=== PATIENT | female | born 1995 | race Caucasian/White ===

== ENCOUNTER 2018-02-16 20:02 | Inpatient (IN) | payer SELFPAY ==
[~2018-02-16] VITALS: Ht 160 cm; Wt 75.7 kg
[2018-02-16 20:17] VITALS: BP 128/80
[2018-02-16 20:24] LABS: BILIRUBIN,URINE NEGATIVE (NEGATIVE); CLARITY,URINE CLEAR; COLOR,URINE YELLOW; GLUCOSE, URINE (UA) 4+ (NEGATIVE); KETONES,URINE NEGATIVE (NEGATIVE); LEUKOCYTE ESTERASE ,URINE 3+ (NEGATIVE); NITRITE,URINE NEGATIVE (NEGATIVE); PH,URINE 5 (5-9); PROTEIN,URINE 1+ (NEGATIVE); UROBILINOGEN,URINE 1 MG/DL (NORMAL)
[2018-02-16 20:33] LABS: BACTERIA,URINE MODERATE /HPF; WBC,URINE 25-50 /HPF
[2018-02-16] MEDS ORDERED: D5 LR IV SOLUTION 1,000 ML IV ONE (23:38)
[2018-02-17] VITALS (70 sets, daily range): BP systolic 89–142; BP diastolic 49–89
[2018-02-17] MEDS ORDERED: LACTATED RINGERS 1,000 ML IV ONE ×2 (00:05→01:50)
[2018-02-17] MEDS ORDERED: SUFENTA 0.6MCG/ML BUPIVA 0.125 100 ML ONE (00:11)
[2018-02-17] MEDS ORDERED: CATHETER FLUSH 10 ML SYR IV PRN (00:15)
[2018-02-17] MEDS ORDERED: EPIDURAL (SUFENTA 0.6MCG/ML BUPIVA 0.125%) 100 ML BAG EPI SCH (00:15)
[2018-02-17] MEDS ORDERED: NALOXONE 0.4 MG/ML 1 ML (NARCAN) VIAL IV PRN ×3 (00:15→02:00)
[2018-02-17 00:22] LABS: BASOPHILS # (AUTO) 0.1 10^3/uL (0.0-0.1); BASOPHILS % (AUTO) 0 % (0-10); EOSINOPHILS # (AUTO) 0.2 10^3/uL (0.0-0.3); EOSINOPHILS % (AUTO) 1 % (0-10); HEMATOCRIT 33 % (35-52); HEMOGLOBIN 11.5 G/DL (11.5-16.0); LYMPHOCYTES # (AUTO) 2.6 X 10^3 (1.0-4.0); LYMPHOCYTES % (AUTO) 16 % (12-44); MEAN CORPUSCULAR HEMOGLOBIN 31 PG (25-34); MEAN CORPUSCULAR HGB CONC 34 G/DL (32-36); MEAN CORPUSCULAR VOLUME 90 FL (80-99); MONOCYTES # (AUTO) 1.3 X 10^3 (0.0-1.0); MONOCYTES % (AUTO) 8 % (0-12); NEUTROPHILS % (AUTO) 74 % (42-75); PLATELET COUNT 252 10^3/uL (130-400); RED CELL DISTRIBUTION WIDTH 12.5 % (10.0-14.5); WHITE BLOOD COUNT 16.2 10^3/uL (4.3-11.0)
[2018-02-17] MEDS ORDERED: fentaNYL INJECTION 100 MCG/2 ML AMP ONE (01:45)
[2018-02-17] MEDS ORDERED: METOCLOPRAMIDE INJ 10 MG/2 ML (REGLAN) IV PRN (02:00)
[2018-02-17] MEDS ORDERED: EPIDURAL (SUFENTA 0.6MCG/ML BUPIVA 0.125%) 100 ML BAG EPI PRN (02:00)
[2018-02-17] MEDS ORDERED: diphenhydrAMINE 50 MG/ML INJ (BENADRYL) IV PRN (02:00)
[2018-02-17] MEDS ORDERED: CATHETER FLUSH 10 ML SYR IV SCH (06:00)
--- NOTE | 2018-02-17 07:12 | History & Physical-OB ---
OB - Chief Complaint & HPI Date/Time Date of Admission: Date of Admission: Feb 16, 2018 at 23:35 Time Seen by Provider: 06:45 Chief Complaint/History OB-Reason for Admission/Chief: Onset of Labor Hx : 2 Hx Para: 1 Expected Date of Delivery: Mar 03, 2018 Gestational Age in Weeks: 38 Gestational Age in Days: 0 Admission Nurse Assessment Rev: Yes History of Labs Panorama WNL, 1 hour GTT 80, HIV negative, Hep B Neg, Rubella Immune, A positive /Antibody negative, PAP WNL. CF Carrier POSITIVE, FOB CF Carrier Status NEG. Allergies and Home Medications Allergies Coded Allergies: bupropion (Verified Allergy, Unknown, 02/17/18) Patient Home Medication List Home Medication List Reviewed: Yes OB - History Hx of Present Care: Yes Ultrasounds: Normal mid trimester US, Other (normal level II US at 34 wks) Obstetrical Complications: None Medical Complications: None Other Concerns: FOB with tetralogy of fallot and pt has father with a congenital heart defect resulting in a single ventricle (per her report, no one appears to know his exact defect) Information Induced Hypertension: No Maternal Gestational Diabetes: No Hemorrhage: No Obstetrical History Hx : 2 Hx Para: 1 Hx # Term Pregnancies: 1 Hx # Pregnancies: 0 Number of Living Children: 1 Hx Termination: No Hx Total # of Abortions (Spona: 0 Hx Multiple Gestation: No Hx Ectopic : No Hx Stillbirth: No Hx Complication: No Hx Induced Hypertens: Yes (per records) Hx Maternal Gestational Diabet: No Hx Hemorrhage: No Delivery History Hx Dystocia: No Hx Forceps Assisted Delivery: No Hx Vacuum Extraction Assisted: No Hx Placenta Abnormality: No Hx Distress: No Hx Large For Gestational Age I: No Hx Small for Gestational Age I: No Hx Section: No Hx Vaginal Delivery Post C-Sec: No Hx Blood Disorders: No Adverse Rxn to Tranfusion: No Patient Past Medical History Depression Anxiety Hyperthyroidism -- not on medication History of Seizures "due to stress and thyroid issues with last stated seizure Apr 2017" --> never on seizure medication or seen by neurology CF Carrier Social History/Family History HIV/AIDS: No Recent Infectious Disease Expo: No Sexually Transmitted Disease: Yes (history of gonorrhea, chlamydia) Alcohol Use: Denies Use Recreational Drug Use: No Smoking Cessation: Current every day smoker Significant Family Hx Congenital heart defect in father - reported single ventricle, but specifics or further details unknown Immunizations Tetanus Booster (TDap): Less than 5yrs Rubella: immune RPR/VDRL: Negative GBS Status: Negative HBsAG: Negative OB - Admission Exam Physical Exam Vitals: Vital Signs 02/17/18 02/17/18 04:30 06:30 Temp 98.6 Pulse 85 Resp 18 B/P (MAP) 90/53 (65) Pulse Ox 96 O2 Delivery Room Air HEENT: NCAT Heart: Rhythm Normal Lungs: Clear Abdomen: Gravid Extremities: Normal Reflexes: Normal Cervical Dilatation: 6cm Effacement: 50% Station: -2 Membranes: Ruptured Amniotic Fluid: Clear Heart Rate: 140's Accelerations: Accelerations Present Fdc Variability: Average (6-25) Contractions on Admission: < 5 Minutes Apart Date/Time Contractions Began;: 02/16/181999 Intensity: Moderate Beaulieu Scoring Tool (Modified) Dilation (cm): >5cm (3) Effacement (%): 31-51% (1) Descent/Station: -3 (0) Cervix Consistency: Soft (2) Cervix Position: Anterior (2) Add 1 point for: Each previous vaginal delivery (1) Beaulieu Score: 9 Labs Laboratory Tests Test 02/16/18 20:15 02/17/18 00:07 Range/Units Urine Color YELLOW Urine Clarity CLEAR Urine pH 5 5-9 Urine Specific [place] 1.025 H 1.016-1.022 Urine Protein 1+ H NEGATIVE Urine Glucose (UA) 4+ H NEGATIVE Urine Ketones NEGATIVE NEGATIVE Urine Nitrite NEGATIVE NEGATIVE Urine Bilirubin NEGATIVE NEGATIVE Urine Urobilinogen 1 NORMAL MG/DL Urine Leukocyte Esterase 3+ H NEGATIVE Urine RBC (Auto) NEGATIVE NEGATIVE Urine RBC NONE /HPF Urine WBC 25-50 H /HPF Urine Squamous Epithelial Cells 5-10 /HPF Urine Crystals NONE /LPF Urine Bacteria MODERATE H /HPF Urine Casts NONE /LPF Urine Mucus NEGATIVE /LPF Urine Culture Indicated YES White Blood Count 16.2 H 4.3-11.0 10^3/uL Red Blood Count 3.70 L 4.35-5.85 10^6/uL Hemoglobin 11.5 11.5-16.0 G/DL Hematocrit 33 L 35-52 % Mean Corpuscular Volume 90 80-99 FL Mean Corpuscular Hemoglobin 31 25-34 PG Mean Corpuscular Hemoglobin Concent 34 32-36 G/DL Red Cell Distribution Width 12.5 10.0-14.5 % Platelet Count 252 130-400 10^3/uL Mean Platelet Volume 11.0 H 7.4-10.4 FL Neutrophils (%) (Auto) 74 42-75 % Lymphocytes (%) (Auto) 16 12-44 % Monocytes (%) (Auto) 8 0-12 % Eosinophils (%) (Auto) 1 0-10 % Basophils (%) (Auto) 0 0-10 % Neutrophils # (Auto) 12.0 H 1.8-7.8 X 10^3 Lymphocytes # (Auto) 2.6 1.0-4.0 X 10^3 Monocytes # (Auto) 1.3 H 0.0-1.0 X 10^3 Eosinophils # (Auto) 0.2 0.0-0.3 10^3/uL Basophils # (Auto) 0.1 0.0-0.1 10^3/uL OB - Assessment/Plan/Diagnosis Assessment Assessment: active labor Admission Dx Labor Term Gestation Admission Status: Inpatient Order (span 2 midnights) Reason for Inpatient Admission: delivery Plan Plan: Other Other Plan AROM at 0647 If no significant change after several hours, will augment with pitocin. Anticipate vaginal delivery. Copy Copies To 1: LACEY CARIAS MARGARET E DO Feb 17, 2018 07:12
[2018-02-17] MEDS: ONDANSETRON 4 MG/2 ML (SDV) Z0FRAN IV PRN ×2 (07:38→12:20)
[2018-02-17] MEDS: D5 LR IV SOLUTION 1,000 ML IV SCH ×2 (07:41)
[2018-02-17] MEDS ORDERED: OXYTOCIN/NORMAL SALINE 500 ML IV SCH (10:00)
[2018-02-17] MEDS: OXYTOCIN/NORMAL SALINE 500 ML IV SCH ×2 (13:40→14:11)
--- NOTE | 2018-02-17 14:25 | OB Labor & Delivery Record ---
Vag Delivery Note Vag Delivery Note Date of Delivery: 02/17/18 Preoperative Diagnosis: Nani Sibley is a 22 /Para 2 / 1,Gestational Age 38 0/7 with spontaneous onset of labor. Postoperative Diagnosis: Same Surgeon: LACEY CARIAS Anesthesia: Epidural Delivery Type: Spontaneous Vaginal Delivery Findings: Viable female infant, apgars 8 and 9, weight 7 lb 2 oz Lacerations: none Intact placenta with 3 vessel cord. Nuchal cord x1, no body cord or shoulder dystocia Pitocin bolus for hemorrhage prophylaxis Estimated Blood Loss: 100 ml Complications: None Condition: Stable Description of Procedure: The patient is a 22 yr old at 38 0/7 wks gestation who presented last night with spontaneous onset of labor at term. She was admitted and informed consent was obtained. Her labor course was remarkable for severe variables immediately prior to delivery. She progressed to complete dilatation and began to push. She was then set up for delivery. The infant's head was delivered atraumatically in the SIM position. The shoulders and remainder of the infant's body were then delivered without difficulty. Upon delivery, nuchal cord was felt - too tight to reduce, but infant was able to deliver through without difficulty. The infant was placed on maternal abdomen, cord was allowed to pulsate and after approximately 90 seconds was doubly clamped and cut and the infant was handed off to the pediatric staff. An intact placenta with 3-vessel cord delivered via Gregoria and there was found to be minimal bleeding.~ Vigorous fundal massage was performed and the fundus was found to be firm. IV oxytocin was given. Examination of the vagina and perineum revealed an intact perineum. Following delivery, instrument and needle counts were correct. Mom and baby were both in stable condition in the labor suite. Vitals - Labs Vital Signs - I&O Vital Signs Date Time Temp Pulse Resp B/P (MAP) Pulse Ox O2 Delivery O2 Flow Rate FiO2 02/17/18 13:15 67 18 102/57 (72) 95 Room Air 02/17/18 13:00 99.0 69 18 102/57 (72) 95 Room Air 02/17/18 12:45 76 18 102/65 (77) 97 Room Air 02/17/18 12:30 98 18 115/73 (87) 97 Room Air 02/17/18 12:15 98.8 93 18 102/56 (71) 97 Room Air 02/17/18 12:00 92 18 96 Room Air 02/17/18 11:45 85 18 90/51 (64) 96 Room Air 02/17/18 11:30 79 18 93/51 (65) 96 Room Air 02/17/18 11:15 78 18 96 Room Air 02/17/18 11:00 96 18 102/54 (70) 97 Room Air 02/17/18 10:45 64 18 98/49 (65) 97 Room Air 02/17/18 10:30 98.8 86 18 98 Room Air 02/17/18 10:15 94 18 112/73 (86) 99 Room Air 02/17/18 10:00 103 18 108/69 (82) 99 Room Air 02/17/18 09:45 66 18 109/63 (78) 99 Room Air 02/17/18 09:30 79 18 94/51 (65) 99 Room Air 02/17/18 09:15 75 18 101/57 (72) 98 Room Air 02/17/18 09:00 80 18 98/55 (69) 98 Room Air 02/17/18 08:45 90 18 104/68 (80) 98 Room Air 02/17/18 08:30 63 18 99/54 (69) 98 Room Air 02/17/18 08:15 86 18 96/53 (67) 98 Room Air 02/17/18 08:00 98.9 100 18 102/60 (74) 98 Room Air 02/17/18 07:45 104 18 97/60 (72) 99 Room Air 02/17/18 07:30 75 18 96/54 (68) 99 Room Air 02/17/18 07:15 97 18 96 Room Air 02/17/18 07:00 98.8 100 18 105/68 (80) 96 Room Air 02/17/18 06:45 81 18 95/53 (67) 96 Room Air 02/17/18 06:30 85 18 90/53 (65) 96 Room Air 02/17/18 06:15 91 18 89/54 (66) 96 Room Air 02/17/18 06:00 97 18 101/51 (68) 96 Room Air 02/17/18 05:45 87 18 90/54 (66) 96 Room Air 02/17/18 05:30 76 18 90/55 (67) 94 Room Air 02/17/18 05:15 78 18 92/50 (64) 95 Room Air 02/17/18 05:00 73 18 92/54 (67) 97 Room Air 02/17/18 04:45 96 18 97 Room Air 02/17/18 04:30 98.6 67 18 97/53 (68) 96 Room Air 02/17/18 04:15 68 18 97/56 (70) 96 Room Air 02/17/18 04:00 65 18 94/55 (68) 96 Room Air 02/17/18 03:45 65 18 94/55 (68) 96 Room Air 02/17/18 03:30 63 18 104/54 (71) 96 Room Air 02/17/18 03:15 61 18 102/55 (71) 96 Room Air 02/17/18 03:00 99.0 60 100/55 (70) 96 Room Air 02/17/18 02:45 88 133/69 (90) 98 Room Air 02/17/18 02:30 75 110/58 (75) 98 Room Air 02/17/18 02:20 67 111/58 (75) 91 Room Air 02/17/18 02:15 74 117/59 (78) 98 Room Air 02/17/18 02:12 94 02/17/18 02:09 93 124/76 (92) 02/17/18 02:06 74 105/55 (72) 02/17/18 02:03 71 105/57 (73) 02/17/18 02:00 62 95/51 (66) 02/17/18 01:56 107 122/62 (82) 02/17/18 01:53 105 125/60 (81) 99 Room Air 02/17/18 01:49 99 128/60 (82) 100 Room Air 02/17/18 01:46 133 130/65 (86) 97 Room Air 02/17/18 01:43 102 126/78 (94) 98 Room Air 02/17/18 01:40 125 126/89 (101) 02/17/18 01:36 108 120/80 (93) 98 Room Air 02/17/18 01:33 103 142/87 (105) 97 Room Air 02/17/18 01:30 100 129/81 (97) 02/17/18 01:28 88 125/82 (96) 100 Room Air 02/17/18 01:24 96 129/83 (98) 02/17/18 01:22 92 119/80 (93) 100 Room Air 02/17/18 01:18 82 119/82 (94) 99 Room Air 02/17/18 01:13 94 99 Room Air 02/17/18 01:08 79 99 Room Air 02/17/18 01:03 91 99 Room Air 02/17/18 00:15 87 108/64 (79) 02/16/18 20:17 99 18 128/80 (96) Labs Laboratory Tests 02/16/18 20:15: Urine Color YELLOW, Urine Clarity CLEAR, Urine pH 5, Urine Specific [place] 1.025H, Urine Protein 1+H, Urine Glucose (UA) 4+H, Urine Ketones NEGATIVE, Urine Nitrite NEGATIVE, Urine Bilirubin NEGATIVE, Urine Urobilinogen 1, Urine Leukocyte Esterase 3+H, Urine RBC (Auto) NEGATIVE, Urine RBC NONE, Urine WBC 25- 50H, Urine Squamous Epithelial Cells 5-10, Urine Crystals NONE, Urine Bacteria MODERATEH, Urine Casts NONE, Urine Mucus NEGATIVE, Urine Culture Indicated YES 02/17/18 00:07: White Blood Count 16.2H, Red Blood Count 3.70L, Hemoglobin 11.5, Hematocrit 33L , Mean Corpuscular Volume 90, Mean Corpuscular Hemoglobin 31, Mean Corpuscular Hemoglobin Concent 34, Red Cell Distribution Width 12.5, Platelet Count 252, Mean Platelet Volume 11.0H, Neutrophils (%) (Auto) 74, Lymphocytes (%) (Auto) 16 , Monocytes (%) (Auto) 8, Eosinophils (%) (Auto) 1, Basophils (%) (Auto) 0, Neutrophils # (Auto) 12.0H, Lymphocytes # (Auto) 2.6, Monocytes # (Auto) 1.3H, Eosinophils # (Auto) 0.2, Basophils # (Auto) 0.1 Microbiology 02/16/18 Urine Culture - Preliminary, Resulted Sent To LACEY Boo DO Feb 17, 2018 14:25
--- NOTE | 2018-02-17 14:29 | OB Labor & Delivery Record ---
L&D History Date of Service Date of Service: Feb 17, 2018 History Expected Date of Delivery: Mar 03, 2018 Gestational Age in Weeks: 38 Hx : 2 Hx Para: 1 Complications Events: Routine care Operative Indications (Cesarea: N/A-Vaginal Delivery Intrapartal Events: None L&D Stage1 Stage One Onset of Labor - Date: Feb 16, 2018 Onset of Labor - Time: 20:00 Duration - Stage I: 17 hours 30 minutes Monitors and Tracing Monitor Mode: Internal Heart Rate: 150 Monitor Decelerations: Variable Station: -1 Senior Care Variability: Average (6-10) Presentation: Vertex Vital Signs VS - Last 72 Hours, by Label 02/16/18 02/17/18 02/17/18 02/17/18 20:17 00:15 01:03 01:08 Pulse 99 87 91 79 Resp 18 B/P (MAP) 128/80 (96) 108/64 (79) Pulse Ox 99 99 O2 Delivery Room Air Room Air 02/17/18 02/17/18 02/17/18 02/17/18 01:13 01:18 01:22 01:24 Pulse 94 82 92 96 B/P (MAP) 119/82 (94) 119/80 (93) 129/83 (98) Pulse Ox 99 99 100 O2 Delivery Room Air Room Air Room Air 02/17/18 02/17/18 02/17/18 02/17/18 01:28 01:30 01:33 01:36 Pulse 88 100 103 108 B/P (MAP) 125/82 (96) 129/81 (97) 142/87 (105) 120/80 (93) Pulse Ox 100 97 98 O2 Delivery Room Air Room Air Room Air 02/17/18 02/17/18 02/17/18 02/17/18 01:40 01:43 01:46 01:49 Pulse 125 102 133 99 B/P (MAP) 126/89 (101) 126/78 (94) 130/65 (86) 128/60 (82) Pulse Ox 98 97 100 O2 Delivery Room Air Room Air Room Air 02/17/18 02/17/18 02/17/18 02/17/18 01:53 01:56 02:00 02:03 Pulse 105 107 62 71 B/P (MAP) 125/60 (81) 122/62 (82) 95/51 (66) 105/57 (73) Pulse Ox 99 O2 Delivery Room Air 02/17/18 02/17/18 02/17/18 02/17/18 02:06 02:09 02:12 02:15 Pulse 74 93 94 74 B/P (MAP) 105/55 (72) 124/76 (92) 117/59 (78) Pulse Ox 98 O2 Delivery Room Air 02/17/18 02/17/18 02/17/18 02/17/18 02:20 02:30 02:45 03:00 Temp 99.0 Pulse 67 75 88 60 B/P (MAP) 111/58 (75) 110/58 (75) 133/69 (90) 100/55 (70) Pulse Ox 91 98 98 96 O2 Delivery Room Air Room Air Room Air Room Air 02/17/18 02/17/18 02/17/18 02/17/18 03:15 03:30 03:45 04:00 Pulse 61 63 65 65 Resp 18 18 18 18 B/P (MAP) 102/55 (71) 104/54 (71) 94/55 (68) 94/55 (68) Pulse Ox 96 96 96 96 O2 Delivery Room Air Room Air Room Air Room Air 02/17/18 02/17/18 02/17/18 02/17/18 04:15 04:30 04:45 05:00 Temp 98.6 Pulse 68 67 96 73 Resp 18 18 18 18 B/P (MAP) 97/56 (70) 97/53 (68) 92/54 (67) Pulse Ox 96 96 97 97 O2 Delivery Room Air Room Air Room Air Room Air 02/17/18 02/17/18 02/17/18 02/17/18 05:15 05:30 05:45 06:00 Pulse 78 76 87 97 Resp 18 18 18 18 B/P (MAP) 92/50 (64) 90/55 (67) 90/54 (66) 101/51 (68) Pulse Ox 95 94 96 96 O2 Delivery Room Air Room Air Room Air Room Air 02/17/18 02/17/18 02/17/18 02/17/18 06:15 06:30 06:45 07:00 Temp 98.8 Pulse 91 85 81 100 Resp 18 18 18 18 B/P (MAP) 89/54 (66) 90/53 (65) 95/53 (67) 105/68 (80) Pulse Ox 96 96 96 96 O2 Delivery Room Air Room Air Room Air Room Air 02/17/18 02/17/18 02/17/18 02/17/18 07:15 07:30 07:45 08:00 Temp 98.9 Pulse 97 75 104 100 Resp 18 18 18 18 B/P (MAP) 96/54 (68) 97/60 (72) 102/60 (74) Pulse Ox 96 99 99 98 O2 Delivery Room Air Room Air Room Air Room Air 02/17/18 02/17/18 02/17/18 02/17/18 08:15 08:30 08:45 09:00 Pulse 86 63 90 80 Resp 18 18 18 18 B/P (MAP) 96/53 (67) 99/54 (69) 104/68 (80) 98/55 (69) Pulse Ox 98 98 98 98 O2 Delivery Room Air Room Air Room Air Room Air 02/17/18 02/17/18 02/17/18 02/17/18 09:15 09:30 09:45 10:00 Pulse 75 79 66 103 Resp 18 18 18 18 B/P (MAP) 101/57 (72) 94/51 (65) 109/63 (78) 108/69 (82) Pulse Ox 98 99 99 99 O2 Delivery Room Air Room Air Room Air Room Air 02/17/18 02/17/18 02/17/18 02/17/18 10:15 10:30 10:45 11:00 Temp 98.8 Pulse 94 86 64 96 Resp 18 18 18 18 B/P (MAP) 112/73 (86) 98/49 (65) 102/54 (70) Pulse Ox 99 98 97 97 O2 Delivery Room Air Room Air Room Air Room Air 02/17/18 02/17/18 02/17/18 02/17/18 11:15 11:30 11:45 12:00 Pulse 78 79 85 92 Resp 18 18 18 18 B/P (MAP) 93/51 (65) 90/51 (64) Pulse Ox 96 96 96 96 O2 Delivery Room Air Room Air Room Air Room Air 02/17/18 02/17/18 02/17/18 02/17/18 12:15 12:30 12:45 13:00 Temp 98.8 99.0 Pulse 93 98 76 69 Resp 18 18 18 18 B/P (MAP) 102/56 (71) 115/73 (87) 102/65 (77) 102/57 (72) Pulse Ox 97 97 97 95 O2 Delivery Room Air Room Air Room Air Room Air 02/17/18 13:15 Pulse 67 Resp 18 B/P (MAP) 102/57 (72) Pulse Ox 95 O2 Delivery Room Air Rupture of Membranes Spontaneous Ruture of Membrane: No Amniotic Membrane Rupture Time: 0647 Amniotic Membrane Fluid Desc.: Clear Vaginal Bleeding Description: Normal Show Induction/Anesthesia Epidural Cath Placement - Time: 3 L&D Stage2 Stage Two Stage II Date: Feb 17, 2018 Stage II Time: 13:34 Stage II Duration: 4 minutes Monitors and Tracing Monitor Mode: Internal Heart Rate: 150 Monitor Decelerations: Variable Paper Sorter Variability: Average (6-10) Short Term Variability: Present Position: Right Occiput Anterior Presentation: Vertex Cord Descript/Complications Cord Vessel Description: 3 Vessels Delivery Type Infant Delivery Method: Spontaneous Vaginal Anterior Shoulder: Left Episiotomy/Perineal Laceration Laceraction(s)/Extensions: No Condition of Infant Delivery Delivery Date & Time: 02/17/2018 at 1334 1 minute Comment: 8 5 minute Comment: 9 Condition of Condition of Infant: Living Exam: No Observed Abnormalities Resuscitation Resuscitation: N/A - Spontaneous Resp L&D Stage3 Stage Three Stage III Date: Feb 17, 2018 Stage III Time: 13:40 Stage III Duration: 6 minutes Pictocin Pitocin Administration mu/min: 2 Pitocin ml/hr: 2 Pitocin Administration Comment: 1215 pitocin started Placenta Delivery Placenta Delivery: Spontaneous Delivery Summary Summary Total Labor Time 17 hours 40 minutes Estimated blood loss (mL): 100 Attending at delivery: Dr. Main Condition of Delivery Examined: Cervix Examined, Uterus Explored Post Hemorrhage: No Condition of Mother Stable Condition of (s) LACEY Martinez DO Feb 17, 2018 14:29
[2018-02-17] MEDS ORDERED: cefTRIAXone INJECTION 1,000 MG in NS (IVPB) 50 ML IV NR (14:45)
[2018-02-17] MEDS ORDERED: WITCH HAZEL(TUCKS) 40 EA JAR TOP PRN (14:45)
[2018-02-17] MEDS ORDERED: DIBUCAINE (NUPERCAINAL) 1% OINT 30 GM TOP PRN (14:45)
[2018-02-17] MEDS ORDERED: BENZOCAINE/MENTHOL (DERMOPLAST) 56 ML CAN TP PRN (14:45)
[2018-02-17] MEDS ORDERED: HYDROcodone/APAP 5 MG/325 MG (LORTAB) TAB PO PRN (14:45)
[2018-02-17] MEDS: IBUPROFEN 600 MG (MOTRIN) TAB PO PRN ×2 (15:07→21:14)
[2018-02-17] MEDS: DOCUSATE SODIUM 100 MG (COLACE) CAP PO SCH (21:11)
[2018-02-17] MEDS: CATHETER FLUSH 10 ML SYR IV SCH (21:18)
[2018-02-18] VITALS: BP 109/69
[2018-02-18 03:59] VITALS: BP 102/53
[2018-02-18 06:24] LABS: BASOPHILS % (AUTO) 0 % (0-10); EOSINOPHILS # (AUTO) 0.3 10^3/uL (0.0-0.3); EOSINOPHILS % (AUTO) 2 % (0-10); HEMATOCRIT 29 % (35-52); HEMOGLOBIN 9.9 G/DL (11.5-16.0); LYMPHOCYTES # (AUTO) 3.8 X 10^3 (1.0-4.0); LYMPHOCYTES % (AUTO) 23 % (12-44); MEAN CORPUSCULAR HEMOGLOBIN 31 PG (25-34); MEAN CORPUSCULAR HGB CONC 34 G/DL (32-36); MEAN CORPUSCULAR VOLUME 92 FL (80-99); MEAN PLATELET VOLUME 11.2 FL (7.4-10.4); MONOCYTES # (AUTO) 1.4 X 10^3 (0.0-1.0); MONOCYTES % (AUTO) 9 % (0-12); NEUTROPHILS # (AUTO) 10.8 X 10^3 (1.8-7.8); NEUTROPHILS % (AUTO) 66 % (42-75); PLATELET COUNT 219 10^3/uL (130-400); RED BLOOD COUNT 3.17 10^6/uL (4.35-5.85); RED CELL DISTRIBUTION WIDTH 12.4 % (10.0-14.5); WHITE BLOOD COUNT 16.4 10^3/uL (4.3-11.0)
[2018-02-18] MEDS: CATHETER FLUSH 10 ML SYR IV SCH (06:33)
[2018-02-18] MEDS ORDERED: PRENATAL VITAMIN 1 EA TAB PO SCH (07:00)
--- NOTE | 2018-02-18 07:53 | Discharge Inst-Women's Service ---
Discharge Inst-Women's Serv Consults/Follow Up Additional Follow Up: Yes (with Dr Main in 6 weeks.) Activity Activity: Activity as Tolerated Driving Instructions: No Driving for 1 Week Nothing Inside Vagina: No [place] (for 6 weeks.) Return to The Hospital For: as below Symptoms to Report to : Bleeding Excessive, Pain Increased, Fever Over 101 Degrees F, Vaginal Discharge Foul For Any Problems or Questions: Contact Your Physician MARLEY TENORIO MD Feb 18, 2018 07:53
--- NOTE | 2018-02-18 08:16 | Anesthesia-Regional Post-Op ---
Regional Patient Condition Mental Status: Alert, Oriented x3 Circulation: Same as Pre-Op Headache: Absent Sensation: Full Recovery Motor Block: Absent Post Op Complications Complications None Follow Up Care/Instructions Patient Instructions None needed. Anesthesia/Patient Condition Patient is doing well, no complaints, stable vital signs, no apparent adverse anesthesia problems. No complications reported per nursing. D/C home per [facility] [place] Criteria: Yes CUCA CARTER CRNA Feb 18, 2018 08:16
[2018-02-18 08:30] VITALS: BP 95/48
[2018-02-18] MEDS: DOCUSATE SODIUM 100 MG (COLACE) CAP PO SCH (08:34)
[2018-02-18] MEDS: CEPHALEXIN 250 MG (KEFLEX) CAP PO SCH ×2 (08:34→13:29)
[2018-02-18] MEDS: IBUPROFEN 600 MG (MOTRIN) TAB PO PRN ×2 (08:34→15:35)
--- NOTE | 2018-02-18 08:47 | Discharge Summary ---
Diagnosis/Chief Complaint Date of Admission Feb 16, 2018 at 23:35 Date of Discharge February 18, 2018 Discharge Date: Feb 18, 2018 Discharge Time: 1400 Admission Diagnosis Admission Diagnosis 1. Intrauterine at 38 weeks gestation Discharge Diagnosis 1. Intrauterine at 38 weeks gestation Reason Hospital Visit 22-year-old female 2 now term 2 who initially presented to labor and delivery during the late evening of February 16 with uterine contractions at 38 weeks gestation. Her EDC is March 02, 2018. Her care was essentially unremarkable and obtained through Dr. Main through [facility]. Discharge Summary-OBS Procedures 1. Epidural per anesthesia 2. Spontaneous vaginal delivery Discharge Physical Examination Allergies: Coded Allergies: bupropion (Verified Allergy, Unknown, 02/17/18) Vitals & I&Os Vital Signs Date Time Temp Pulse Resp B/P (MAP) Pulse Ox O2 Delivery O2 Flow Rate FiO2 02/18/18 03:59 97.6 57 18 102/53 (69) 99 Room Air General Appearance: No Acute Distress HEENT: Mucous Memb Moist/[place] Respiratory: Clear to Auscultation Cardiovascular: Regular Rate Abdominal: Soft (With uterus firm) Hospital Course Following delivery patient underwent routine care orders. She was noted to have no complications during the remainder of hospital stay. Her hemoglobin on admission was 11.5 and 9.9 on dismissal date. She was tolerating regular diet and was eager for dismissal during the afternoon of February 18, 2018. She will follow-up in 6 weeks. Pending Labs Laboratory Tests 02/18/18 06:05: White Blood Count 16.4, Red Blood Count 3.17, Hemoglobin 9.9, Hematocrit 29, Mean Corpuscular Volume 92, Mean Corpuscular Hemoglobin 31, Mean Corpuscular Hemoglobin Concent 34, Red Cell Distribution Width 12.4, Platelet Count 219, Mean Platelet Volume 11.2, Neutrophils (%) (Auto) 66, Lymphocytes (%) (Auto) 23 , Monocytes (%) (Auto) 9, Eosinophils (%) (Auto) 2, Basophils (%) (Auto) 0, Neutrophils # (Auto) 10.8, Lymphocytes # (Auto) 3.8, Monocytes # (Auto) 1.4, Eosinophils # (Auto) 0.3, Basophils # (Auto) 0.0 Discharge Instructions to patient/family Please see electronic discharge instructions given to patient. Discharge Medications Reviewed and agree with Discharge Medication list on patient's Discharge Instruction sheet Clinical Quality Measures DVT/VTE Risk/Contraindication: Risk Factor Score Per Nursin RFS Level Per Nursing on Admit: 1=Low/No VTE PPX MARLEY TENORIO MD Feb 18, 2018 08:47
[2018-02-18 08:56] VITALS: BP 111/66
[2018-02-18 12:30] VITALS: BP 99/64
[2018-02-18 16:05] VITALS: BP 99/64
== END 2018-02-18 16:05 | disposition home or self-care (01) | DRG 775 ==
LOC: WSo 20:02 → LDRP 20:09 → WSo 23:35 → LDRP 23:35 → 3RD 02-17 11:55 → LDRP 02-17 11:55
PROVIDERS: ADMIT Family Medicine; ATTEND Family Medicine
PROC: 10E0XZZ Delivery of Products of Conception, External Approach (ICD-10-PCS; principal; 2018-02-17)
DX: O69.1XX0 Labor and delivery complicated by cord around neck, with compression, not applicable or unspecified (principal); O99.334 Smoking (tobacco) complicating childbirth; Z14.1 Cystic fibrosis carrier; Z37.0 Single live birth; Z3A.38 38 weeks gestation of pregnancy
CPT/HCPCS: 36415; 81000; 85025; 86850; 86900; 86901; 87088